=== PATIENT | female | born 1980 | race Caucasian/White ===

== ENCOUNTER 2016-09-19 16:25 | Inpatient (IN) | payer BC, MEDICAID ==
[~2016-09-19] VITALS: Ht 167.6 cm; Wt 81.8 kg
[~2016-09-19 16:25] MED LIST: MOTRIN 600600 MG/TAB PO; NO HOME MEDICATIONS; PERCOCET 325 MG1 TA2 PO; PRENATAL VITA1 UDTAB PO; PRILOSEC PO
[2016-11-01] VITALS (57 sets, daily range): BP systolic 101–145; BP diastolic 55–82; PULSE 66–133; TEMP 97.6–98.5
[2016-11-01] MEDS ORDERED: PROFERRIN ES12 MG PO (07:37)
[2016-11-01] MEDS ORDERED: PRENATAL MVI (07:37)
[2016-11-01 07:46] LABS: BASO % 0.5 % (0.0-2.0); EOS # 0.1 (0.0-0.7); EOS % 0.7 % (0-4.0); GRAN % 66.9 % (42.2-75.2); HEMATOCRIT 33.1 % (37.0-47.0); HEMOGLOBIN 11.3 g/dl (12.5-16.0); LYMPH # 1.9 (1.2-3.4); LYMPH % 25.1 % (20.0-51.0); MEAN CELL VOLUME 87 fl (80.0-100.0); MEAN CORPUSCULAR HEMOGLOBIN 30 pg (27.0-31.0); MEAN CORPUSCULAR HGB CONC 34 g/dl (33.0-37.0); MEAN PLATELET VOLUME 12.2 fl (7.4-10.4); MONO # 0.5 (0.1-0.6); MONO % 6.4 % (1.7-9.3); PLATELET COUNT 136 K/mm3 (130-400); RED BLOOD COUNT 3.82 M/mm3 (4.10-5.30); REDCELL DISTRIBUTION WIDTH-CV 13.3 % (11.5-14.5); WHITE BLOOD COUNT 7.5 K/mm3 (4.8-10.8)
[2016-11-02 03:51] VITALS: BP 108/47; PULSE 71; TEMP 98
[2016-11-02] MEDS ORDERED: PERCOCET 325 MG1 TA2 PO (07:47)
[2016-11-02] MEDS ORDERED: MOTRIN 600600 MG/TAB PO (07:47)
[2016-11-02 07:53] VITALS: BP 105/65; PULSE 75; TEMP 97.8
[2016-11-02 16:45] VITALS: BP 121/70; PULSE 68; TEMP 98.3
== END 2016-11-02 20:20 | disposition home or self-care (01) | DRG 775 ==
LOC: LDR 11-01 06:56 → OB 11-01 06:58 → EDSTATUS 11-19 06:55 → LDRO 11-19 16:25
PROVIDERS: Obstetrics & Gynecology
PROC: 10E0XZZ Delivery of Products of Conception, External Approach (ICD-10-PCS; principal; 2016-11-01)
PROC: 0KQM0ZZ Repair Perineum Muscle, Open Approach (ICD-10-PCS; 2016-11-01)
DX: O69.81X0 Labor and delivery complicated by cord around neck, without compression, not applicable or unspecified (principal); O32.6XX0 Maternal care for compound presentation, not applicable or unspecified; O70.1 Second degree perineal laceration during delivery; Z3A.39 39 weeks gestation of pregnancy; Z37.0 Single live birth
CPT/HCPCS: J2590; J2795; J7120